=== PATIENT | male | born 1955 | race Caucasian/White ===

== ENCOUNTER 2020-04-16 07:01 | Outpatient (CLI) | payer MEDICARE, OTHER ==
[2020-04-16 07:36] LABS: TOTAL HEMOGLOBIN 15.7 G/dl (14.0-18.0)
== END 2020-04-16 23:59 | disposition home or self-care (01) ==
LOC: RT 07:01
PROVIDERS: ATTEND Internal Medicine
DX: R06.2 Wheezing (principal); J18.9 Pneumonia, unspecified organism
CPT/HCPCS: 85018; 94010; 94727; 94729